=== PATIENT | female | born 1945 | race Caucasian/White ===

== ENCOUNTER 2020-11-22 07:31 | Emergency (ER) | payer MEDICARE, OTHER ==
--- NOTE | 2020-11-22 07:44 | EDM.PDOC ---
ED HPI GENERAL MEDICAL PROBLEM - General Chief Complaint: Skin Complaint Stated Complaint: has sore that needs to be drained?[id number] Time Seen by Provider: 11/22/20 07:43 Source of Information: Reports: Patient, Old Records, RN, RN Notes Reviewed History Limitations: Reports: No Limitations - History of Present Illness INITIAL COMMENTS - FREE TEXT/NARRATIVE: Pt presents to ER with c/o an abscess on the left buttock that began about five days ago as a pimple. The area has been draining mucus that smells like stool. She was seen in clinic yesterday, prescribed Clindamycin and instructed by her provider to wait until Tuesday then go to the ER to have an I&D because the provider was not comfortable draining it in clinic. Pt is unsure why she had to come to the ER for this, but states she was just following the instructions. She denies fever, chills, or expanding erythema. The area is tender to touch and uncomfortable to sit on. Pt has Hx of DM. She has been taking Clindamycin 300mg QID as prescribed. 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 ED EXAM, SKIN/RASH Exam: See Below Exam Limited By: No Limitations General Appearance: Alert, WD/WN, No Apparent Distress Throat/Mouth: Normal Voice, No Airway Compromise Head: Atraumatic, Normocephalic Neck: Normal Inspection Respiratory/Chest: No Respiratory Distress, Lungs Clear, Chest Non-Tender Cardiovascular: Regular Rate, Rhythm, Tachycardia GI/Abdominal: Normal Bowel Sounds, Soft, Non-Tender Rectal (Female) Exam: Other (Left buttock perianal skin has a 1cm open tract draining yellow mucus that smells like stool. No flucutant abscess or erythema. The opening tracts towards the rectum and is suspicious for a perianal fistula. ) Back Exam: Normal Inspection Extremities: Normal Inspection Neurological: Alert, Oriented, No Motor/Sensory Deficits Psychiatric: Normal Mood Skin: Warm, Dry, Intact Course - Vital Signs Last Recorded V/S: Last Vital Signs Temp 97.3 F 11/22/20 07:48 Pulse 107 H 11/22/20 07:48 Resp 16 11/22/20 07:48 BP 180/86 H 11/22/20 07:48 Pulse Ox 98 11/22/20 07:48 - Orders/Labs/Meds Orders: Active Orders 24 hr Category Date Time Status CULTURE WOUND [RM] Stat Lab 11/22/20 08:26 Ordered Meds: Medications Discontinued Medications Generic Name Dose Route Start Last Admin Trade Name Freq PRN Reason Stop Dose Admin Bacitracin 1 dose 11/22/20 07:48 11/22/20 08:01 Bacitracin Oint 1 Gm U/D Packet TOP 11/22/20 07:49 1 dose ONETIME ONE Administration Lidocaine HCl 30 ml 11/22/20 07:48 11/22/20 08:02 Lidocaine 1% 30 Ml Sdv INJECT 11/22/20 07:49 30 ml ONETIME ONE Administration - Re-Assessments/Exams Free Text/Narrative Re-Assessment/Exam: 11/22/20 08:36 No procedural I&D performed or indicated. Pt instructed to f/u in clinic for a referral to a general surgeon for further evaluation. Departure - Departure Time of Disposition: 08:14 Disposition: Home, Self-Care 01 Condition: Good Clinical Impression: Perirectal fistula - Discharge Information *PRESCRIPTION DRUG MONITORING PROGRAM REVIEWED*: Not Applicable *COPY OF PRESCRIPTION DRUG MONITORING REPORT IN PATIENT RONALD: Not Applicable Instructions: Anal Fistula Forms: ED Department Discharge Additional Instructions: Call your clinic provider Tuesday, November 24 to inform him that you came to the ER, and it was found that you do not have an abscess that needs drained, but actually have an open draining tract that appears to be a perianal fistula which needs a referral to a general surgeon. Your primary physician will need to make the referral for you. Continue the Clindamycin as prescribed. Sepsis Event Note (ED) - Focused Exam Vital Signs: Vital Signs Temp Pulse Resp BP Pulse Ox 11/22/20 07:48 97.3 F 107 H 16 180/86 H 98 - My Orders Last 24 Hours: My Active Orders 11/22/20 08:26 CULTURE WOUND [RM] Stat - Assessment/Plan Last 24 Hours: My Active Orders 11/22/20 08:26 CULTURE WOUND [RM] Stat
[2020-11-22] MEDS ORDERED: Lidocaine 1% 30 ML SDV INJECT ONE (07:48)
[2020-11-22] MEDS ORDERED: Bacitracin Oint 1 GM U/D Packet TOP ONE (07:48)
== END 2020-11-22 08:28 | disposition home or self-care (01) ==
LOC: DL.ED 07:31
DX: K60.4 Rectal fistula (principal); E11.9 Type 2 diabetes mellitus without complications; I10 Essential (primary) hypertension; Z88.2 Allergy status to sulfonamides; Z88.1 Allergy status to other antibiotic agents
CPT/HCPCS: 87070; 87077; 87186; 99283

== ENCOUNTER 2023-05-30 09:58 | Emergency (ER) | payer MEDICARE, OTHER ==
[2023-05-30] MEDS ORDERED: Aspirin 81 MG Tab.Chew PO ONE (10:12)
[2023-05-30] MEDS ORDERED: Nitroglycerin 0.4 MG Tab.SL SL ONE ×2 (10:33→10:54)
[2023-05-30] MEDS ORDERED: Clopidogrel 75 MG Tab PO ONE (10:33)
[2023-05-30] MEDS ORDERED: Tenecteplase 50 MG Kit IVPUSH STA (10:40)
[2023-05-30 10:54] LABS: HEMATOCRIT 39.6 % (37.0-47.0); HEMOGLOBIN 13.3 g/dL (12.0-16.0); MEAN CORPUSCULAR HEMOGLOBIN 32.5 pg (27.0-34.0); MEAN CORPUSCULAR HGB CONC 33.6 g/dL (33.0-35.0); MEAN CORPUSCULAR VOLUME 96.8 fL (80-100); NEUTROPHILS PERCENT AUTO 90.2 % (42.2-75.2); PLATELET COUNT,PLT 330 10^3/uL (150-450); RED BLOOD CELL COUNT 4.09 10^6/uL (4.2-5.4); WHITE BLOOD CELL COUNT,WBC 16.2 10^3/uL (5.0-10.0)
[2023-05-30 10:55] LABS: BASOPHILS PERCENT AUTO 0.6 % (0.0-1.0); EOSINOPHILS PERCENT AUTO 0.1 % (1.0-3.0); LYMPHOCYTES PERCENT AUTO 7.1 % (20.5-50.1)
[2023-05-30] MEDS ORDERED: Lactated Ringers 1,000 ML IV ONE (10:56)
[2023-05-30 11:09] LABS: A/G RATIO 1.1; ALBUMIN 3.8 g/dL (3.4-5.0); ANION GAP 17.3 mEq/L (7-13); BILIRUBIN TOTAL 0.4 mg/dL (0.2-1.0); BUN/CREATININE RATIO 13.8 (No establ ref range); CALCIUM 9.8 mg/dL (8.5-10.1); CREATININE 1.52 mg/dL (0.55-1.02); EST CRCL DRUG DOSING (CG) 29.02 mL/min; POTASSIUM,K 4.3 mmol/L (3.5-5.1); PROTEIN TOTAL,TP 7.4 g/dL (6.4-8.2)
[2023-05-30 11:31] LABS: INR 0.9 (0.9-1.2); PROTHROMBIN TIME 9.7 SEC (9.0-12.0)
[2023-05-30 12:17] LABS: BAND PERCENT MAN 4 %; LYMPHOCYTES PERCENT MAN 10 % (20-50); MONOCYTES PERCENT MAN 3 % (2-8); SEG NEUTROPHILS PERCENT MAN 83 % (42-75)
== END 2023-05-30 11:38 | disposition other institution (70) ==
LOC: DL.ED 09:58
DX: I21.29 ST elevation (STEMI) myocardial infarction involving other sites (principal); I10 Essential (primary) hypertension; E11.9 Type 2 diabetes mellitus without complications; Z88.2 Allergy status to sulfonamides; Z88.1 Allergy status to other antibiotic agents
CPT/HCPCS: 36415; 80053; 84484; 85025; 85610; 92977; 93010; 99285; A9270-GY; J3101; J7120

== ENCOUNTER 2025-03-30 05:16 | Emergency (ER) | payer MEDICARE, OTHER ==
[2025-03-30] MEDS ORDERED: Sodium Chloride 0.9% 10 ML Syringe FLUSH PRN (05:37)
[2025-03-30 05:49] LABS: BASOPHILS PERCENT AUTO 0.5 % (0.0-1.0); EOSINOPHILS PERCENT AUTO 0.6 % (1.0-3.0); LYMPHOCYTES PERCENT AUTO 11.0 % (20.5-50.1); MONOCYTES PERCENT AUTO 8.4 % (2-8); NEUTROPHILS PERCENT AUTO 79.5 % (42.2-75.2); PLATELET COUNT,PLT 294 10^3/uL (150-450); RED BLOOD CELL COUNT 3.93 10^6/uL (4.2-5.4); WHITE BLOOD CELL COUNT,WBC 17.0 10^3/uL (5.0-10.0)
[2025-03-30 06:07] LABS: B-TYPE NATRIURETIC PEPTIDE,BNP 949.0 pg/ml (0-100)
[2025-03-30 06:13] LABS: A/G RATIO 1.1; ALANINE AMINOTRANSFERASE,ALT 32.0 U/L (14-59); ASPARTATE AMNIOTRANSFERASE,AST 39.0 U/L (15-37); BILIRUBIN TOTAL 0.5 mg/dL (0.2-1.0); BLOOD UREA NITROGEN,BUN 32.0 mg/dL (7-18); CARBON DIOXIDE,CO2 23.0 mmol/L (21-32); CHLORIDE,CL 103.0 mmol/L (98-107); CREATININE 1.71 mg/dL (0.55-1.02); EST CRCL DRUG DOSING (CG) 24.97 mL/min; GLUCOSE RANDOM 223.0 mg/dL (70-99); POTASSIUM,K 4.5 mmol/L (3.5-5.1); PROTEIN TOTAL,TP 7.4 g/dL (6.4-8.2); SODIUM,NA 138.0 mmol/L (136-145)
[2025-03-30 06:14] LABS: ESTIMATED GFR 30.0 mL/min (>=60)
[2025-03-30 06:18] LABS: INR 2.5 (0.9-1.2); PTT,PARTIAL THROMBOPLSTIN TIME 35.9 SEC (22.0-34.0)
[2025-03-30] MEDS: Heparin Sodium 5,000 Units/ML Vial IVPUSH ONE (06:32)
[2025-03-30] MEDS: Heparin Sodium/0.45% NaCl 25,000 UNITS/500 ML BAG IV SCH (06:32)
== END 2025-03-30 07:05 ==
LOC: DL.ED 05:16
DX: I21.4 Non-ST elevation (NSTEMI) myocardial infarction (principal); N17.9 Acute kidney failure, unspecified; I12.9 Hypertensive chronic kidney disease with stage 1 through stage 4 chronic kidney disease, or unspecified chronic kidney disease; N18.31 Chronic kidney disease, stage 3a; R79.89 Other specified abnormal findings of blood chemistry; E11.22 Type 2 diabetes mellitus with diabetic chronic kidney disease; E78.00 Pure hypercholesterolemia, unspecified; Z88.2 Allergy status to sulfonamides; Z86.16 Personal history of COVID-19
CPT/HCPCS: 36415; 71045; 80053; 83735; 83880; 84484; 85025; 85610; 85730; 93005; 96365; 99285; A9270; J1644; 93010